=== PATIENT | male | born 1950 | race Caucasian/White ===

== ENCOUNTER 2019-07-05 09:56 | Emergency (ER) | payer MEDICARE, OTHER ==
--- NOTE | 2019-07-05 10:16 | EDM.PDOC ---
ED HPI GENERAL MEDICAL PROBLEM - General Chief Complaint: Neuro Symptoms/Deficits Stated Complaint: L SIDE NUMBNESS Time Seen by Provider: 07/05/19 10:00 - History of Present Illness INITIAL COMMENTS - FREE TEXT/NARRATIVE: 69-year-old male presents the emergency room left-sided weakness. The patient woke up around 9:00 this morning and noticed this. He could not make a fist, he could ambulate but he had to work out at it. He went to bed between 11 and 12 last night and everything was normal. The patient has not had problems with stroke or TIA in the past however he has a long history of atrial fibrillation and atrial flutter. He is on Coumadin. The does not give a history of him having any speech difficulties. - Related Data Allergies Allergy/AdvReac Type Severity Reaction Status Date / Time No Known Allergies Allergy Verified 07/05/19 10:52 Home Meds: Home Meds Warfarin [Coumadin] 5 mg PO SUMOWEFR 08/08/15 [History] atorvaSTATin [Lipitor] 40 mg PO DAILY 08/08/15 [History] Diltiazem [Cardizem CD] 180 mg PO DAILY #14 cap.cd 08/10/15 [Rx] Warfarin [Coumadin] 7.5 mg PO TUTHSA 08/10/15 [History] Celecoxib [CeleBREX] 100 mg PO DAILY 01/25/19 [History] Pantoprazole [ProTONIX] 40 mg PO DAILY 01/25/19 [History] Past Medical History HEENT History: Reports: Cataract, Impaired Vision Cardiovascular History: Reports: Afib, Arrhythmia, High Cholesterol, Hypertension, Pacemaker Respiratory History: Reports: None. Denies: COPD Gastrointestinal History: Reports: Diverticulosis, GERD, Other (See Below) Other Gastrointestinal History: "burned portions in esophagus" Genitourinary History: Reports: None Musculoskeletal History: Reports: None Neurological History: Reports: Other (See Below). Denies: CVA, TIA Other Neuro History: meningitis Psychiatric History: Reports: None Endocrine/Metabolic History: Reports: Obesity/BMI 30+. Denies: Diabetes, Type II Hematologic History: Reports: Idiopathic Thrombocytopenia Immunologic History: Reports: None Oncologic (Cancer) History: Reports: None Dermatologic History: Reports: None - Infectious Disease History Infectious Disease History: Reports: Measles - Past Surgical History Head Surgeries/Procedures: Reports: None HEENT Surgical History: Reports: None, Cataract Surgery Cardiovascular Surgical History: Reports: Pacer Respiratory Surgical History: Reports: None GI Surgical History: Reports: None Male Surgical History: Reports: None Endocrine Surgical History: Reports: None Neurological Surgical History: Reports: None Musculoskeletal Surgical History: Reports: Knee Replacement Oncologic Surgical History: Reports: None Dermatological Surgical History: Reports: None Social & Family History - Family History Family Medical History: Noncontributory - Caffeine Use Caffeine Use: Reports: Soda - Living Situation & Occupation Living situation: Reports: Occupation: Retired ED ROS GENERAL - Review of Systems Review Of Systems: See Below Constitutional: Reports: No Symptoms HEENT: Reports: No Symptoms Respiratory: Reports: No Symptoms Cardiovascular: Reports: No Symptoms GI/Abdominal: Reports: No Symptoms : Reports: No Symptoms Musculoskeletal: Reports: No Symptoms Skin: Reports: No Symptoms ED EXAM, NEURO - Physical Exam Exam: See Below Exam Limited By: No Limitations General Appearance: Alert, No Apparent Distress, Other (He is talking normally. He has an obvious left arm weakness on initial examination and a noticeable left leg weakness) Eye Exam: Bilateral Eye: EOMI, Normal Inspection, PERRL Ears: Normal External Exam, Normal Canal, Hearing Grossly Normal, Normal TMs Nose: Normal Inspection, Normal Mucosa, No Blood Throat/Mouth: Normal Inspection, Normal Lips, Normal Teeth, Normal Gums, Normal Oropharynx, Normal Voice, No Airway Compromise Head Exam: Atraumatic, Normocephalic Neck: Normal Inspection, Supple, Non-Tender, Full Range of Motion, Other (No bruits). No: Lymphadenopathy (L), Lymphadenopathy (R) Respiratory/Chest: No Respiratory Distress, Lungs Clear, Normal Breath Sounds Cardiovascular: Regular Rate, Rhythm, No Edema, No Murmur GI/Abdominal: Normal Bowel Sounds, Soft, Non-Tender Neurological: Alert, Normal Mood/Affect, Other (On initial examination he had obvious inability to make a complete fist left side and his arm strength was noticeably and significantly weaker than on the right. With him testing the knee flexion and extension and this was noticeably weaker as well the patient was taken to CT after an Accu-Chek was obtained that showed a result of 114) EKG INTERPRETATION EKG Date: 07/05/19 Rhythm: Other (Atrial flutter with 4-1 block no significant change from EKG done on 2018) [place]: LAD-Left [place] Deviation QRS: Normal ST-T: Normal Comparison: No Change Course - Vital Signs Last Recorded V/S: Last Vital Signs Temp 37.1 C 07/05/19 09:59 Pulse 76 07/05/19 09:59 Resp 16 07/05/19 09:59 BP 140/71 07/05/19 09:59 Pulse Ox 98 07/05/19 09:59 - Orders/Labs/Meds Orders: Active Orders 24 hr Category Date Time Status EKG Documentation Completion [RC] ASDIRECTED Care 07/05/19 10:08 Active POC Glucose [Blood Glucose Check, Bedside] [RC] ONETIME Care 07/05/19 10:03 Active EKG 12 Lead [EK] Stat Ther 07/05/19 10:07 Ordered Labs: Laboratory Tests 07/05/19 07/05/19 07/05/19 Range/Units 10:02 10:35 10:35 WBC 8.69 (4.23-9.07) K/mm3 RBC 3.83 L (4.63-6.08) M/mm3 Hgb 12.2 L (13.7-17.5) gm/dl Hct 39.0 L (40.1-51.0) % MCV 101.8 H (79.0-92.2) fl MCH 31.9 (25.7-32.2) pg MCHC 31.3 L (32.2-35.5) g/dl RDW Std Deviation 61.7 H (35.1-43.9) fL Plt Count 52 L (163-337) K/mm3 MPV TNP Neut % (Auto) 52.6 (34.0-67.9) % Lymph % (Auto) 12.4 L (21.8-53.1) % [place] % (Auto) 25.0 H (5.3-12.2) % Eos % (Auto) 0 L (0.8-7.0) Baso % (Auto) 0.6 (0.1-1.2) % Neut # (Auto) 4.57 (1.78-5.38) K/mm3 Lymph # (Auto) 1.08 L (1.32-3.57) K/mm3 [place] # (Auto) 2.17 H (0.30-0.82) K/mm3 Eos # (Auto) 0.00 L (0.04-0.54) K/mm3 Baso # (Auto) 0.05 (0.01-0.08) K/mm3 Manual Slide Review Abnormal smear PT (9.7-12.0) SECONDS INR APTT (22-31) SECONDS Sodium 143 (136-145) mEq/L Potassium 4.1 (3.5-5.1) mEq/L Chloride 106 (98-107) mEq/L Carbon Dioxide 26 (21-32) mEq/L Anion Gap 15.1 H (5-15) BUN 15 (7-18) mg/dL Creatinine 1.3 (0.7-1.3) mg/dL Est Cr Clr Drug Dosing 48.73 mL/min Estimated GFR (MDRD) 54 (>60) mL/min BUN/Creatinine Ratio 11.5 L (14-18) Glucose 104 (83-115) mg/dL POC Glucose 118 H (83-110) mg/dL Calcium 8.9 (8.5-10.1) mg/dL Magnesium 2.2 (1.8-2.4) mg/dl Total Bilirubin 0.9 (0.2-1.0) mg/dL AST 23 (15-37) U/L ALT 17 (16-63) U/L Alkaline Phosphatase 59 (46-116) U/L C-Reactive Protein 0.8 (<1.0) mg/dL Total Protein 7.0 (6.4-8.2) g/dl Albumin 3.9 (3.4-5.0) g/dl Globulin 3.1 gm/dL Albumin/Globulin Ratio 1.3 (1-2) 07/05/19 Range/Units 10:35 WBC (4.23-9.07) K/mm3 RBC (4.63-6.08) M/mm3 Hgb (13.7-17.5) gm/dl Hct (40.1-51.0) % MCV (79.0-92.2) fl MCH (25.7-32.2) pg MCHC (32.2-35.5) g/dl RDW Std Deviation (35.1-43.9) fL Plt Count (163-337) K/mm3 MPV Neut % (Auto) (34.0-67.9) % Lymph % (Auto) (21.8-53.1) % [place] % (Auto) (5.3-12.2) % Eos % (Auto) (0.8-7.0) Baso % (Auto) (0.1-1.2) % Neut # (Auto) (1.78-5.38) K/mm3 Lymph # (Auto) (1.32-3.57) K/mm3 [place] # (Auto) (0.30-0.82) K/mm3 Eos # (Auto) (0.04-0.54) K/mm3 Baso # (Auto) (0.01-0.08) K/mm3 Manual Slide Review PT 23.0 H (9.7-12.0) SECONDS INR 2.21 APTT 39 H (22-31) SECONDS Sodium (136-145) mEq/L Potassium (3.5-5.1) mEq/L Chloride (98-107) mEq/L Carbon Dioxide (21-32) mEq/L Anion Gap (5-15) BUN (7-18) mg/dL Creatinine (0.7-1.3) mg/dL Est Cr Clr Drug Dosing mL/min Estimated GFR (MDRD) (>60) mL/min BUN/Creatinine Ratio (14-18) Glucose (83-115) mg/dL POC Glucose (83-110) mg/dL Calcium (8.5-10.1) mg/dL Magnesium (1.8-2.4) mg/dl Total Bilirubin (0.2-1.0) mg/dL AST (15-37) U/L ALT (16-63) U/L Alkaline Phosphatase (46-116) U/L C-Reactive Protein (<1.0) mg/dL Total Protein (6.4-8.2) g/dl Albumin (3.4-5.0) g/dl Globulin gm/dL Albumin/Globulin Ratio (1-2) - Re-Assessments/Exams Free Text/Narrative Re-Assessment/Exam: 07/05/19 12:12 When the patient arrived from CT he seemed to have improving strength in his lower extremity and in his left by the time nursing got around to doing it stroke score this was basically 0 I did reassess the patient and his leg strength did seem to normalize best we can tell by physical exam and 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 I discussed the situation with Dr. Jaurez neurologist at [facility] who agreed with sending the patient the case was discussed with Dr. Atwood, hospitalist, who accepted the patient. Departure - Departure Time of Disposition: 12:13 Disposition: DC/Tfer to Acute Hospital 02 Clinical Impression: Transient ischemic attack (TIA), Atrial fibrillation and flutter - Discharge Information Referrals: Marquise Beck MD [Primary Care Provider] - Forms: ED Department Discharge Sepsis Event Note - Focused Exam Vital Signs: Vital Signs Temp Pulse Resp BP Pulse Ox 07/05/19 09:59 37.1 C 76 16 140/71 98 Date Exam was Performed: 07/05/19 Time Exam was Performed: 12:09 - My Orders Last 24 Hours: My Active Orders 07/05/19 10:03 POC Glucose [Blood Glucose Check, Bedside] [RC] ONETIME 07/05/19 10:07 EKG 12 Lead [EK] Stat 07/05/19 10:08 EKG Documentation Completion [RC] ASDIRECTED - Assessment/Plan Last 24 Hours: My Active Orders 07/05/19 10:03 POC Glucose [Blood Glucose Check, Bedside] [RC] ONETIME 07/05/19 10:07 EKG 12 Lead [EK] Stat 07/05/19 10:08 EKG Documentation Completion [RC] ASDIRECTED
--- NOTE | 2019-07-05 10:21 | CT ---
Head CT Technique: Multiple axial sections through the brain were obtained. Intravenous contrast was not utilized. Comparison: No prior intracranial imaging. Findings: Ventricles along with basal cisterns and sulci over the convexities are moderately prominent. Prominent diminished density is noted within the periventricular white matter and subcortical white matter which is compatible with small vessel ischemic demyelination change. Old lacunar infarcts are noted within the basal ganglia. No other abnormal parenchymal densities are appreciated. No evidence of intracranial hemorrhage. No midline shift or mass effect is identified. Bone window settings were reviewed. No acute paranasal sinus finding seen within the visualized sinuses. Mastoid sinus is also show nothing acute. No acute calvarial abnormality is appreciated. Impression: 1. Senescent change as noted above. 2. No acute intracranial abnormality is appreciated. Note: If patient's symptoms warrant further evaluation, MRI could then be considered. Diagnostic code #2 This report was dictated in [place] Standard Time
[2019-07-05 11:01] VITALS: PULSE 76
[2019-07-05 12:23] VITALS: BP 144/89
== END 2019-07-05 12:10 ==
LOC: JD.ED 09:56
DX: G45.9 Transient cerebral ischemic attack, unspecified (principal); I48.91 Unspecified atrial fibrillation; I48.92 Unspecified atrial flutter; Z79.899 Other long term (current) drug therapy
CPT/HCPCS: 36415; 70450; 70450-26; 80053; 82962; 83735; 85025; 85610; 85730; 86140; 93005; 93010; 99284; 99285-25